=== PATIENT | male | born 1960 | race Hispanic/Latino ===

== ENCOUNTER → 2025-04-10 | Outpatient (CLI) | payer OTHER ==
[2025-04-10 21:41] LABS: BODY FLUID RBC 905 /cu. mm.; BODY FLUID WBC 149 /cu. mm.
[2025-04-10 21:43] LABS: SPECIMENTYPE,BODY FLUID OTHER
[2025-04-10 21:44] LABS: APPEARANCE BODY FLUID SLIGHTLY CLOUDY (CLEAR); COLOR,BODY FLUID LT YELLOW (LT YELLOW); TOTAL VOLUME,BODY FLUID 20 mL
[2025-04-10 22:36] LABS: BF LYMPHOCYTE 64 %; BF MACROPHAGE 15; BF MONOCYTE 10 %; BF NEUTROPHIL 11.0 %; BF TOTAL CELLS COUNTED 100
== END | disposition home or self-care (01) ==
LOC: LAB 20:04
PROVIDERS: ATTEND Orthopaedic Surgery
DX: M25.462 Effusion, left knee (principal)
CPT/HCPCS: 89051; 89060